=== PATIENT | male | born 1980 | race Caucasian/White ===

== ENCOUNTER 2019-07-07 16:02 | Emergency (ER) | payer OTHER, SELFPAY ==
[2019-07-07 16:03] VITALS: BP 103/87; PULSE 77; RESP 16; TEMP 37; O2SAT 98
--- NOTE | 2019-07-07 16:04 | ED.GENADULT ---
HPI - General Adult General Chief complaint: Upper Respiratory Infection Stated complaint: back pain/congestion/cough Time Seen by Provider: 07/07/19 16:14 Source: patient Mode of arrival: ambulatory Limitations: no limitations History of Present Illness HPI narrative: 39-year-old male patient presents the [facility] with complaints of cold symptoms that started yesterday. Patient states he has had a little bit of back pain and a slight cough. Denies any fevers. Denies any ear pain runny nose or sore throat. Patient states that his daughter was just diagnosed with influenza and that his mother was recently diagnosed with influenza. Patient states he is here today for influenza test is to make sure that his symptoms are not influenza at this time. Patient states that he did get a flu shot this year. Denies any chest pain or shortness of breath. Denies take anything for symptoms so far. Related Data Home Medications Medication Instructions Recorded Confirmed No Home Medications 07/07/19 07/07/19 Allergies Allergy/AdvReac Type Severity Reaction Status Date / Time No Known Allergies Allergy Unverified 07/16/18 14:13 Review of Systems Review of Systems: Narrative: CONSTITUTIONAL: Denies fever, positive chills, denies sweats. EYES: Denies visual changes, redness, or discharge. ENT: Denies rhinorrhea, congestion, sore throat, or otalgia. CARDIOVASCULAR: Denies chest pain, palpitations, or edema. RESPIRATORY: Positive cough, denies dyspnea. GASTROINTESTINAL: Denies abdominal pain, nausea, vomiting, or diarrhea. GENITOURINARY: Denies dysuria or hematuria. SKIN: Denies rash or itching. MUSCULOSKELETAL: Positive back pain, denies joint pain, or myalgia. NEUROLOGIC: Denies headache, numbness, or weakness. PSYCHIATRIC: Denies anxiety or depression. PMFSH Family History Family History Grandparent Diabetes mellitus Social History Social History Smoking status: Never smoker Alcohol intake: current Comments At the time of my signature I agree with nursing past medical history, surgical, social, and family history. There is no relevant family history pertinent to the presenting complaint. Exam Narrative: Exam Narrative: GENERAL: Well-appearing, well-nourished, and in no acute distress. HEAD: Normocephalic, atraumatic. No tenderness noted to frontal maxillary sinuses on palpation. EYES: PERRLA and EOMI. ENT: Nares clear, no rhinorrhea or epistaxis. Mucous membranes moist. Posterior pharynx with no erythema, tonsillar margin, exudates or lesions present. Bilateral TMs are clear no erythema or foreign bodies in the canal. NECK: Supple. No lymphadenopathy CHEST: Clear to auscultation. No respiratory distress. HEART: Regular rate and rhythm. No murmur heard. Normal peripheral pulses. ABDOMEN: Soft, nontender, nondistended, normal active bowel sounds. EXTREMITIES: Normal range of motion. No edema. SKIN: Warm, dry, no rash. NEURO: No focal deficits. Alert and oriented x3. Course Reevaluation(s) Reevaluation #1: Notify patient he is negative today for influenza. Discussed with him this most likely is some type of viral syndrome or colds. Discussed with him he can treat himself with [id number] medications help with symptoms however if he has worsening symptoms such as chest pain or shortness of breath he would need to go to the ER. Patient verbalized understanding denies any other questions or concerns at this time. Date: 07/07/19 Time: 16:26 Vital Signs Vital signs: Vital Signs Temperature 37.0 C 07/07/19 16:03 Pulse Rate 77 07/07/19 16:03 Respiratory Rate 16 07/07/19 16:03 Blood Pressure 103/87 07/07/19 16:03 Pulse Oximetry 98 07/07/19 16:03 Temperature 37.0 C 07/07/19 16:03 Pulse Rate 77 07/07/19 16:03 Respiratory Rate 16 07/07/19 16:03 Blood Pressure 103/87 07/07/19 1
== END 2019-07-07 16:28 | disposition home or self-care (01) ==
PROVIDERS: Emergency Provider Nurse Practitioner Family
DX: J06.9 Acute upper respiratory infection, unspecified (principal)
CPT/HCPCS: 87804; 99213; G0463

== ENCOUNTER 2022-11-30 13:55 | Emergency (ER) | payer OTHER, SELFPAY ==
--- NOTE | 2022-11-30 13:57 | ED.EYEPROB ---
HPI - Eye Problem General Chief complaint: Eye Problems Stated complaint: SCRATCHED EYE Time Seen by Provider: 11/30/22 13:57 Source: patient Mode of arrival: ambulatory Limitations: no limitations History of Present Illness HPI Narrative: Patient is a 42-year-old male who presents with pressure and blurred vision to left eye. Patient states his nephew was playing in with him in the eye with a towel. Patient states at 1st he was only able to see brown now he has has blurred vision and eye pressure. Denies any bright flashes of light or floaters. Does state it feels like something is stuck in his eye. Has not taken anything or used any eyedrops. Does not have an eye doctor Related Data Allergies Allergy/AdvReac Type Severity Reaction Status Date / Time No Known Allergies Allergy Verified 11/30/22 14:06 Review of Systems Review of Systems: All systems reviewed & are unremarkable except as noted in HPI and below Constitutional: Constitutional: Denies body ache(s), Denies fever(s), Denies headache(s), Denies malaise and Denies weakness Eyes: Eyes: Reports blurry vision, Denies eye discharge, Denies floaters, Denies irritation, Denies itchy eyes, Denies loss of vision, Reports eye pain, Denies seeing flashes and Reports other (eye-pressure) ENT: Denies otalgia, Denies headache(s), Denies nasal discharge, Denies sinus pain and Denies sore throat Cardiovascular: Cardiovascular: Denies chest pain, Denies irregular heart rhythm and Denies dyspnea Respiratory: Respiratory: Denies dyspnea Gastrointestinal: Gastrointestinal: Denies abdominal pain, Denies diarrhea, Denies nausea and Denies vomiting Musculoskeletal: Musculoskeletal: Denies back pain, Denies myalgias and Denies arthralgias Integumentary/Breasts: Skin/Breast: Denies pruritus and Denies rash Neurologic: Denies headache(s), Denies loss of vision and Denies weakness Psychiatric: Psychiatric: Reports no additional psychiatric complaints Allergic/Immunologic: Allergic/Immunologic: Reports itchy eyes PMFSH Family History Family History Grandparent Diabetes mellitus Social History Social History Smoking status: Never smoker Alcohol intake: current Comments At time of signature, agree with nursing past medical, surgical, social and family history. There is no relevant family history pertinent to the presenting complaint. Exam Const: General: cooperative, healthy appearing, comfortable, no acute distress and well nourished Nutritional Appearance: well nourished Orientation/consciousness: patient oriented x3 Limitations: no limitations HENMT: Head: normal to inspection, normocephalic and atraumatic Ears: external ears normal Face/Nose/Sinus: Normal external nose present, normal facial exam and face symmetric Face and sinus: normal facial exam and face symmetric Mouth: Yes lip normal Eyes: General: appearance normal, both eyes and all related structures Visual Chandler: normal visual chandler by confrontation Alignment and Position: alignment normal and position normal Periorbital: periorbital findings normal Eyelids: eyelids normal Conjunctivae: conjunctival abnormality left conjunctival injection diffuse Sclera: scleral abnormality left scleral injection diffuse Cornea: corneas normal and fluorescein used Pupils: Equal, round and reactive pupils present EOM: EOMs intact bilaterally Direct Ophthalmoscopy: normal light reflex, no photophobia, no papilledema, anterior chamber normal no hyphema noted and No photophobia Other: No hyphema, no foreign body under the lids. Increased pressure feeling on palpation Neck: Neck: normal visual inspection, full ROM, no lymphadenopathy and no meningeal signs Chest: Chest palpation & inspection: normal inspection of the chest Resp: Effort & Inspection: normal respiratory effort and able to speak in complet
[2022-11-30 14:06] VITALS: BP 130/70; PULSE 70; RESP 16; TEMP 36.6; O2SAT 98
[2022-11-30] MEDS: FLUORESCEIN SOD 1 MG/STRIP EACH EYE (14:14)
[2022-11-30] MEDS: TETRACAINE HCL 0.5% OPHTH SOLN 4 ML BTL 1 DROP EACH EYE (14:15)
--- NOTE | 2022-11-30 14:21 | PC.NURSE ---
PT REPORTS EYE PRESSURE, DENIES SEEING ANY FLOATERS.
== END 2022-11-30 14:35 | disposition home or self-care (01) ==
PROVIDERS: Emergency Provider Nurse Practitioner Family
DX: S05.8X2A Other injuries of left eye and orbit, initial encounter (principal); W22.8XXA Striking against or struck by other objects, initial encounter; H53.8 Other visual disturbances
CPT/HCPCS: 99203; G0463